=== PATIENT | female | born 2000 | race Caucasian/White ===

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

== ENCOUNTER 2020-10-14 16:19 | Emergency (ER) | payer MEDICAID ==
[~2020-10-14] VITALS: Ht 162.6 cm; Wt 72.7 kg
[~2020-10-14 16:19] MED LIST changes: +CYMBALTA 60MG60 MG PO; +NEXIUM 20MG20 MG PO; +REGLAN 10MG10 MG/TAB PO; +TOPROL XL100 MG PO; +WELLBUTRIN XL150 MG PO
[2020-10-14 16:26] VITALS: TEMP 98.5
[2020-10-14] MEDS ORDERED: FLEXERIL 1010 MG/TAB PO (18:01)
[2020-10-14] MEDS ORDERED: NORCO 325 MG-51 TAB PO (18:01)
[2020-10-14] MEDS ORDERED: LIDODERM 5% PATC1 EA TP (18:01)
[2020-10-14 18:07] VITALS: BP 118/80; PULSE 87
== END 2020-10-14 18:08 | disposition home or self-care (01) ==
LOC: COL.ER 16:19
DX: M62.838 Other muscle spasm (principal); X50.1XXA Overexertion from prolonged static or awkward postures, initial encounter
CPT/HCPCS: J1885; J2360

== ENCOUNTER 2022-08-01 01:34 | Emergency (ER) | payer MEDICAID ==
[~2022-08-01] VITALS: Ht 167.6 cm; Wt 76.8 kg
[~2022-08-01 01:34] MED LIST changes: +FLEXERIL 1010 MG/TAB PO; +LIDODERM 5% PATC1 EA TP
[2022-08-01 01:45] VITALS: TEMP 97.8
[2022-08-01 03:32] VITALS: BP 122/77; PULSE 111
== END 2022-08-01 03:35 | disposition home or self-care (01) ==
LOC: COL.ER 01:34
DX: F12.929 Cannabis use, unspecified with intoxication, unspecified (principal); R00.0 Tachycardia, unspecified
CPT/HCPCS: J2405; J7030

== ENCOUNTER 2022-08-16 10:11 | Day surgery (SDC) | payer MEDICAID ==
[2022-08-16] VITALS (7 sets, daily range): BP systolic 91–122; BP diastolic 65–83; PULSE 73–98; TEMP 97.3–98
[~2022-08-16] VITALS: Ht 167.6 cm; Wt 74.6 kg
[2022-08-16] MEDS ORDERED: FLOMAX 0.40.4 MG/CAP PO (11:14)
[2022-08-16] MEDS ORDERED: MILI 0.25-0.031 EACH PO (11:15)
[2022-08-16] MEDS ORDERED: ADIPEX-P37.5 M2 PO (11:16)
[2022-08-16] MEDS ORDERED: SEROQUEL 2525 MG/TAB PO (11:17)
--- NOTE | 2022-08-16 18:49 | NUR ---
[id number] PT TO [facility] FROM PACU S/P CYSTO WITH STONE REMOVAL AND LEFT URETER STENT PLACEMENT PLACED ON MONITOR, VSS ON RA RECEIVED REPORT AND ASSUMED CARE OF PT FROM ZORAN SEGURA/MICHELE AND ASIM AT BEDSIDE PROVIDED FLUIDS AND FOOD - TOLERATING WELL, DENIES COMPLAINT. PT HAS REMAINED A&O, NAD, VSS ON RA, TOLERATING PO, IS WITHOUT SIGNIFICANT COMPLAINT, WITH STEADY GAIT THRU OUT [facility] STAY IV D/C'D. D/C INSTRUCTIONS, AND F/U REMINDER REVIEWED AND HANDED TO PT. ALL QUESTIONS AND CONCERNS ADDRESSED TO PT SATISFACTION. TAKEN TO EXIT VIA W/C WITH ALL BELONGINGS AND PAPERWORK IN HAND, ASSISTED INTO PASSENGER SEAT OF POV BY [facility] STAFF. MOM TO DRIVE HOME.
== END 2022-08-16 14:20 | disposition home or self-care (01) ==
LOC: SDCO 10:11
DX: N20.1 Calculus of ureter (principal)
CPT/HCPCS: C1769; C2617; J0690; J1100; J2405; J2704; J3010